=== PATIENT | male | born 1965 ===

== ENCOUNTER 2019-03-23 11:19 | Emergency (ER) | payer MEDICAID ==
[2019-03-23] MEDS ORDERED: Sodium Chloride 0.9% 1,000 ML IV SCH (11:30)
--- NOTE | 2019-03-23 11:50 | CT ---
Date of service: 03/23/2019 PROCEDURE: CT HEAD WITHOUT CONTRAST. HISTORY: TIA, initial exam COMPARISON: None available. TECHNIQUE: Axial computed tomography images were obtained through the head/brain without intravenous contrast. Radiation dose: Total exam DLP = 966.53 mGy-cm. This CT exam was performed using one or more of the following dose reduction techniques: Automated exposure control, adjustment of the mA and/or kV according to patient size, and/or use of iterative reconstruction technique. FINDINGS: HEMORRHAGE: No intracranial hemorrhage. BRAIN: No mass effect or edema. White matter changes noted likely represent chronic microvascular ischemic disease. No CT evidence of acute territorial infarction. VENTRICLES: Unremarkable. No hydrocephalus. CALVARIUM: Unremarkable. PARANASAL SINUSES: Unremarkable as visualized. No significant inflammatory changes. MASTOID AIR CELLS: Unremarkable as visualized. No inflammatory changes. OTHER FINDINGS: None. IMPRESSION: No evidence of acute intracranial hemorrhage territorial infarct mass effect or midline shift.
--- NOTE | 2019-03-23 11:51 | ED PDOC ---
HPI: Neurologic - General Time Seen by Provider: 03/23/19 11:27 Chief Complaint (Nursing): Weakness/Neurological Deficit Chief Complaint (Provider): Weakness/Neurological Deficit Source: patient, family Exam Limitations: no limitations - History of Present Illness Timing/Duration: 1-3 hours Allergies/Adverse Reactions: Allergies Unobtainable Allergy (Verified 03/23/19 11:30) Home Medications: Ambulatory Orders No Known Home Med 03/23/19 Past Medical History Primary Care Provider: FAMILY PROVIDER,NO - Home Medications Home Medications: Ambulatory Orders Medication Instructions Recorded No Known Home Med 03/23/19 - Allergies Allergies/Adverse Reactions: Allergies Allergy/AdvReac Type Severity Reaction Status Date / Time Unobtainable Allergy Verified 03/23/19 11:30 - Laboratory Results Result Diagrams: 03/23/19 11:38 03/23/19 11:38 Medical Decision Making Medical Decision Making: Time: 1127 Initial Plan: Code stroke initiated. * Labs * CT head * EKG * Accucheck * CXR * Ativan 0.5mg IVP * IV fluids Time: 1130 --Accucheck: 136 mg/dL. Time: 1146 --CT head FINDINGS: HEMORRHAGE: No intracranial hemorrhage. BRAIN: No mass effect or edema. White matter changes noted likely represent chronic microvascular ischemic disease. No CT evidence of acute territorial infarction. VENTRICLES: Unremarkable. No hydrocephalus. CALVARIUM: Unremarkable. PARANASAL SINUSES: Unremarkable as visualized. No significant inflammatory changes. MASTOID AIR CELLS: Unremarkable as visualized. No inflammatory changes. OTHER FINDINGS: None. IMPRESSION: No evidence of acute intracranial hemorrhage territorial infarct mass effect or midline shift. Scribe Attestation: Documented by Ana Cristina Jauregui, acting as a scribe for Silvio. Aimee III, DO. Provider Scribe Attestation: All medical record entries made by the Scribe were at my direction and personally dictated by me. I have reviewed the chart and agree that the record accurately reflects my personal performance of the history, physical exam, medical decision making, and the department course for this patient. I have also personally directed, reviewed, and agree with the discharge instructions and disposition. Disposition - Disposition Forms: Qnary (Azerbaijani)
[2019-03-23 11:52] LABS: BASO % 0.6 % (0.0-2.0); EOS % 0.2 % (0.0-4.0); HEMOGLOBIN 15.2 g/dL (12.0-18.0); LYMPH # 2.8 K/uL (1.0-4.3); LYMPH % 35.2 % (20.0-40.0); MEAN CELL VOLUME 83.2 fl (80.0-94.0); MEAN CORPUSCULAR HEMOGLOBIN 27.5 pg (27.0-31.0); MEAN PLATELET VOLUME 8.3 fl (7.2-11.7); MONO # 0.8 K/uL (0.0-0.8); MONO % 9.9 % (0.0-10.0); NEUT # 4.3 K/uL (1.8-7.0); NEUT % 54.1 % (50.0-75.0); NRBC % 0.1 % (0.0-0.0); RBC 5.53 Mil/uL (4.40-5.90); RED CELL DISTRIBUTION WIDTH 13.8 % (11.5-14.5); WHITE BLOOD COUNT 7.9 K/uL (4.8-10.8)
[2019-03-23 12:00] LABS: PROTHROMBIN TIME 11.5 Seconds (9.8-13.1)
[2019-03-23 12:02] LABS: ALB/GLOB RATIO 1.3 (1.0-2.1); ALT/SGPT 35 U/L (21-72); AST/SGOT 39 U/L (17-59); BLOOD UREA NITROGEN 19 mg/dl (9-20); CALCIUM 9.8 mg/dL (8.4-10.2); GFR NON-AFRICAN AMERICAN > 60; HDL CHOLESTEROL 54 MG/DL (30-70)
[2019-03-23 12:03] LABS: PARTIAL THROMBOPLASTIN TIME 33.3 Seconds (25.6-37.1)
[2019-03-23 12:13] LABS: LDL CHOLESTEROL 128 mg/dL (0-129)
[2019-03-23] MEDS ORDERED: HYDROmorphone 1 mg/ml ISec IVP STA (12:18)
--- NOTE | 2019-03-23 13:44 | RAD ---
Date of service: 03/23/2019 HISTORY: Code Stroke COMPARISON: No prior. FINDINGS: LUNGS: No active pulmonary disease. PLEURA: No significant pleural effusion identified, no pneumothorax apparent. CARDIOVASCULAR: No atherosclerotic calcification present Normal. OSSEOUS STRUCTURES: No significant abnormalities. VISUALIZED UPPER ABDOMEN: Normal. OTHER FINDINGS: None. IMPRESSION: No active disease.
[2019-03-23 16:05] LABS: BARBITURATES, UR NEGATIVE (NEGATIVE); BENZODIAZEPINES, UR NEGATIVE (NEGATIVE); OPIATES, UR NEGATIVE (NEGATIVE); PHENCYCLIDINE, UR NEGATIVE (NEGATIVE)
[2019-03-23 16:56] VITALS: BP 147/90; RESP 18; TEMP 99; O2SAT 99
--- NOTE | 2019-03-23 18:22 | CARD ---
APPROVED REPORT Date of service: 03/23/2019 EKG Measurement Heart [id number] <Conclusion> Sinus tachycardia Possible Left atrial enlargement Abnormal ECG
--- NOTE | 2019-03-29 07:29 | ED PDOC ---
HPI:STROKE - Time Time: 11:25 - Historian Historian: Patient, Family - Chief Complaint Chief Complaint: Numbness, Mental status change - Onset Date: 03/23/19 Time: 10:30 Onset: Hours (1 hour approx) - Timing Timing: Currently Symptomatic - Context Context: [employer] - Location Location: Difficult to localize - Quality of Pain Quality of Pain:: Other (cramping) - Exacerbated by Exacerbated by:: Nothing - TPA Positive for Contraindication: Yes Reason tPA is not being Administered: symptoms bilateral more consistent with anxiety - Notes: Notes:: 54yo male presents c/o palpitations, b/l carpal spasms, bilateral facial numbness, dizziness and speech changes when driving. Pulled car over and came to ED. Denies prior history of similar symptoms. Family states under significant pressure at work. Denies depression, family does believe he suffers from anxiety at times. No reports etoh or drug abuse. Triage activate code stroke given numbness and speech complaints. NIHSS Stroke Scale - Date/Time Evaluation Performed Date Performed: 03/23/19 Time Performed: 11:30 When Was NIHSS Performed: Baseline - How Severe is the Stroke Level of Consciousness: 0=Alert LOC to Questions: 0=Both comments correct LOC to commands: 0=Obeys both correctly Best Gaze: 0=Normal Visual: 0=No visual loss Facial: 0=Normal Motor Arm - Left: 0=No drift Motor Arm - Right: 0=No drift Motor Leg - Left: 1=Drift before 5 sec Motor Leg - Right: 1=Drift before 5 sec Limb Ataxia: 1=Present Upper or Lower Sensory: 1=Mild to moderate loss Best Language: 0=No aphasia Dysarthia: 0=Normal articulation Extinction & Inattention (Neglect): 0=Normal, no object Score: 4 rTPA Inclusion/Exclusion - Refusal of Treatment Patient Refused Treatment: No - Inclusion Criteria for Altepase All of the below criteria for inclusion were reviewed: No Patient is 18 years or Older: Yes The Clinical Diagnosis of Ischemic Stroke That is Causing a Potentially Disabling Neurological Deficit: No Time of Onset is Well Established to be Less Than 270 Minute Before Treatment Would Begin: Yes Risk/Benefit Discussed With Patient/Family Member Present: No Past Medical History Reviewed: Historical Data, Nursing Documentation, Vital Signs Vital Signs: Last Vital Signs Temp 99.0 F 03/23/19 16:45 Pulse 78 03/23/19 16:45 Resp 18 03/23/19 16:45 BP 147/90 03/23/19 16:45 Pulse Ox 99 03/23/19 16:45 Primary Care Provider: FAMILY PROVIDER,NO - Medical History PMH: No Chronic Diseases - Family History Family History: States: Unknown Family Hx - Living Arrangements Living Arrangements: With Family - Social History Current smoker - smoking cessation education provided: No - Home Medications Home Medications: Ambulatory Orders Medication Instructions Recorded No Known Home Med 03/23/19 - Allergies Allergies/Adverse Reactions: Allergies Allergy/AdvReac Type Severity Reaction Status Date / Time Unobtainable Allergy Verified 03/23/19 11:30 Review of Systems Constitutional: Negative for: Fever Eyes: Negative for: Vision Change Cardiovascular: Positive for: Palpitations Respiratory: Negative for: Shortness of Breath Gastrointestinal: Negative for: Abdominal Pain Genitourinary Male: Negative for: Dysuria, Frequency Musculoskeletal: Negative for: Neck Pain, Back Pain Skin: Negative for: Rash Neurological: Positive for: Weakness, Numbness, Change in Speech, Altered Mental Status, Dizziness Psych: Positive for: Anxiety. Negative for: Suicidal ideation Physical Exam - Reviewed Nursing Documentation Reviewed: Yes Vital Signs Reviewed: Yes - Physical Exam Appears: Positive for: Non-toxic (anxious), No Acute Distress Head Exam: Positive for: ATRAUMATIC, NORMAL INSPECTION, NORMOCEPHALIC Skin: Positive for: Normal Color, Warm, DRY Eye Exam: Positive for: EOMI, Normal appearance, PERRL ENT: Positive for: Normal ENT Inspection Neck: Positive for: Normal, Painless ROM Cardiovascular/Chest: Positive for: Regular Rate, Rhythm, Tachycardia Respiratory: Positive for: CNT, Normal Breath Sounds Gastrointestinal/Abdominal: Positive for: Normal Exam, Soft Back: Positive for: Normal Inspection Extremity: Positive for: Normal ROM. Negative for: Deformity Neurological/Psych: Positive for: Awake, Alert, Normal Tone, Mood/Affect (anxious), Motor/Sensory Deficits (b/l LE 4/5 strength, sensation to face bilateral diminished subjectively, b/l carpal spasm, symptoms overall symmetric) - Laboratory Results Result Diagrams: 03/23/19 11:38 03/23/19 11:38 Lab Results: PT 11.5 Seconds (9.8-13.1) 03/23/19 11:38 INR 1.0 03/23/19 11:38 APTT 33.3 Seconds (25.6-37.1) 03/23/19 11:38 Troponin I < 0.0120 ng/mL (0.00-0.120) 03/23/19 11:38 Total Bilirubin 2.1 mg/dl (0.2-1.3) H 03/23/19 11:38 AST 39 U/L (17-59) 03/23/19 11:38 ALT 35 U/L (21-72) 03/23/19 11:38 Alkaline Phosphatase 76 U/L (38-126) 03/23/19 11:38 Total Protein 9.0 G/DL (6.3-8.2) H 03/23/19 11:38 Albumin 5.0 g/dL (3.5-5.0) 03/23/19 11:38 Globulin 3.9 gm/dL (2.2-3.9) 03/23/19 11:38 Albumin/Globulin Ratio 1.3 (1.0-2.1) 03/23/19 11:38 - ECG ECG: Positive for: Interpreted By Me ECG Rhythm: Positive for: Normal QRS, Sinus Tachycardia, ST/T Changes, Nonspecific Changes Rate: 117 O2 Sat by Pulse Oximetry: 99 Pulse Ox Interpretation: Normal - Radiology X-Ray: Read By Radiologist X-Ray Interpretation: No Acute Disease Medical Decision Making Medical Decision Making: Dr Grayson placed initial stroke orders as i was attending to another critical patient CT brain report and labs reviewed EKG reviewed, sinus tach ativan 0.5mg IV ordered and frequently re-evaluated for any improvement patient saw improvement and resolution of symptoms after ativan explained findings and considering neurologic symptoms on arrival, age, offered and recommended hospital observation for MRI and neuro eval but patient refused stating he needed to get to work. Offered to provide work note but he still refused to stay in hospital. Pt was at baseline neuro status, AAOx 3 and able to make decision for self. Disposition - Clinical Impression Clinical Impression: Anxiety, Weakness - Patient ED Disposition Is Patient to be Admitted: Yes - Disposition Referrals: [facility] [Outside] Disposition: Against Medical Advice Disposition Time: 13:30 Condition: STABLE Additional Instructions: Return to ER for continued care at any time. Instructions: Anxiety, Adult (DC), Leaving Against Medical Advice, Weakness (ED) Forms: Lida Grace (Macanese), [facility] School/Work Excuse Print Language: JAPANESE Against Medical Advice - AMA Patient Left Against Medical Advice: The patient declines admission to the hospital and wishes to leave the Emergency Department. This action is against my medical advice. This decision was made with informed refusal. The patient was told that admission to the hospital is necessary. Explanation of the reasons why were discussed. The risks of leaving were explained to the patient and include, but are not limited to, worsening of known or currently unknown conditions, permanent disability and from undiagnosed or untreated conditions. The patient has the capacity to make this informed decision and understands my explanation of the current medical problem and risks of leaving. The patient voluntarily accepts these risks and signed an AMA form documenting our conversation. The patient was given the opportunity to ask questions and reconsider. The patient was encouraged to return to the Emergency Department at any time for further care.
[2019-03-29 07:37] VITALS: PULSE 117
== END 2019-03-23 16:45 | disposition home or self-care (01) ==
LOC: H.ER 11:19
DX: F41.9 Anxiety disorder, unspecified (principal); R53.1 Weakness
CPT/HCPCS: 70450; 71045; 80053; 80061; 80320; 80324; 80345; 80346; 80349; 80353; 80358; 80361; 82948; 83036; 83992; 84484; 85025; 85610; 85730; 86850; 86900; 93005; 96374; 99285; J2060; J7030